=== PATIENT | female | born 1995 | race American Indian/Alaskan Native ===

== ENCOUNTER 2021-04-17 10:20 | Emergency (ER) | payer OTHER ==
--- NOTE | 2021-04-17 10:41 | Event Note ---
ED Screening Note Date of service: 04/17/21 Time: 10:39 ED Screening Note: 25-year-old female (A1; LMP 03/16/21) presents to the emergency department complaints of painful vaginal bleeding starting 2 days ago. Patient states she was experiencing mild spotting last week, which she thought was her menstrual cycle. However, 2 days ago she passed several blood clots, followed by onset of pelvic pain. Today, patient felt lightheaded and dizzy, prompting her to come to the emergency department. She is not anticoagulated. General: Awake, appropriately interactive, no acute distress. Neck: Supple. Full range of motion intact. Cardiovascular: Normal peripheral perfusion. Pulmonary: No respiratory distress. Patient is speaking normally without use of accessory muscles. Skin: No apparent rashes or lesions. Neurological: No facial asymmetry. Speech is clear. Follows commands. Patient is alert and oriented. Musculoskeletal: Moves all four extremities spontaneously with normal range of motion. Psych: Cooperative. Appropriate mood and affect. I have greeted and performed a focused rapid initial assessment of this patient. A comprehensive ED assessment and evaluation of the patient, analysis of all test results, and completion of the medical decision-making process will be con ducted by additional ED providers. This initial assessment/diagnostic orders/clinical plan/treatment(s) is/are subject to change based on patients health status, clinical progression and re-assessment. Further treatment and workup at subsequent clinical provider's discretion. Patient/guardian urged not to elope from the ED as their condition may be serious if not clinically assessed and managed.
--- NOTE | 2021-04-17 10:46 | Emergency Department Report ---
ED Female HPI - General Chief complaint: Vaginal Bleeding Stated complaint: EXCESSIVE VAGINAL BLEEDING, DIZZINESS Time Seen by Provider: 04/17/21 10:43 Source: patient Mode of arrival: Ambulatory Limitations: No Limitations - History of Present Illness Initial comments: Patient is a pleasant 25-year-old -[place] female that comes to the emergency room with vaginal bleeding. She states that her periods have been extremely heavy and prolonged. Patient is not concerned about . She denies being concerned about STDs. Patient just has mild abdominal cramping. She has no abdominal pain. No CVA tenderness. No dysuria. No vaginal discharge. No back pain patient denies fever or chills. Patient denies a history of uterine fibroids but adds that they do run in her family. Patient has not seen an [employer] in a couple years. MD Complaint: vaginal bleeding -: Gradual, week(s) Severity: mild Quality: cramping Consistency: intermittent Improves with: none Worsens with: none Are you Now?: No Associated Symptoms: vaginal bleeding - Related Data Sexually active: Yes Allergies Allergy/AdvReac Type Severity Reaction Status Date / Time codeine Allergy Rash Verified 04/17/21 10:23 ED Review of Systems ROS: Stated complaint: EXCESSIVE VAGINAL BLEEDING, DIZZINESS Other details as noted in HPI Comment: All other systems reviewed and negative ED Past Medical Hx - Past Medical History Previous Medical History?: No - Surgical History Past Surgical History?: No - Family History Family history: no significant - Social History Smoking Status: Never Smoker Substance Use Type: None ED Physical Exam - General Limitations: No Limitations General appearance: alert, in no apparent distress - Head Head exam: Present: atraumatic, normocephalic - Eye Eye exam: Present: normal appearance - ENT ENT exam: Present: mucous membranes moist - Neck Neck exam: Present: normal inspection - Respiratory Respiratory exam: Present: normal lung sounds bilaterally. Absent: respiratory distress - Cardiovascular Cardiovascular Exam: Present: regular rate, normal rhythm. Absent: systolic murmur, diastolic murmur, rubs, gallop - GI/Abdominal GI/Abdominal exam: Present: soft, normal bowel sounds - Extremities Exam Extremities exam: Present: normal inspection - Back Exam Back exam: Present: normal inspection - Neurological Exam Neurological exam: Present: alert, oriented X3 - Psychiatric Psychiatric exam: Present: normal affect, normal mood - Skin Skin exam: Present: warm, dry, intact, normal color. Absent: rash ED Course Vital Signs 04/17/21 04/17/21 10:27 12:46 Temperature 98.9 F Pulse Rate 80 67 Respiratory 16 12 Rate Blood Pressure 132/92 Blood Pressure 114/67 [Left] O2 Sat by Pulse 100 98 Oximetry ED Medical Decision Making - Lab Data Result diagrams: 04/17/21 11:02 04/17/21 11:02 - Medical Decision Making Vital Signs 04/17/21 04/17/21 10:27 12:46 Temperature 98.9 F Pulse Rate 80 67 Respiratory 16 12 Rate Blood Pressure 132/92 Blood Pressure 114/67 [Left] O2 Sat by Pulse 100 98 Oximetry Labs 04/17/21 04/17/21 04/17/21 11:02 11:02 11:02 WBC 4.1 L RBC 4.09 Hgb 12.8 Hct 37.1 MCV 91 MCH 31 MCHC 35 H RDW 12.6 L Plt Count 161 Lymph % (Auto) 38.2 H [place] % (Auto) 6.4 Eos % (Auto) 0.5 Baso % (Auto) 0.6 Lymph # (Auto) 1.5 [place] # (Auto) 0.3 Eos # (Auto) 0.0 Baso # (Auto) 0.0 Seg Neutrophils % 54.3 Seg Neutrophils # 2.2 Sodium 137 Potassium 4.1 Chloride 103.6 Carbon Dioxide 26 Anion Gap 12 BUN 12 Creatinine 0.7 Estimated GFR > 60 BUN/Creatinine Ratio 17 Glucose 89 Calcium 8.7 Total Bilirubin 0.30 AST 18 ALT 16 Alkaline Phosphatase 80 Total Protein 6.9 Albumin 4.2 Albumin/Globulin Ratio 1.6 HCG, Quant < 2 Urine Color Urine Turbidity Urine pH Ur Specific [place] Urine Protein Urine Glucose (UA) Urine Ketones Urine Blood Urine Nitrite Urine Bilirubin Urine Urobilinogen Ur Leukocyte Esterase Urine WBC (Auto) Urine RBC (Auto) U Epithel Cells (Auto) Urine Mucus Blood Type Ord Rhogam Gestat Weeks 04/17/21 04/17/21 11:02 Unknown WBC RBC Hgb Hct MCV MCH MCHC RDW Plt Count Lymph % (Auto) [place] % (Auto) Eos % (Auto) Baso % (Auto) Lymph # (Auto) [place] # (Auto) Eos # (Auto) Baso # (Auto) Seg Neutrophils % Seg Neutrophils # Sodium Potassium Chloride Carbon Dioxide Anion Gap BUN Creatinine Estimated GFR BUN/Creatinine Ratio Glucose Calcium Total Bilirubin AST ALT Alkaline Phosphatase Total Protein Albumin Albumin/Globulin Ratio HCG, Quant Urine Color Straw Urine Turbidity Clear Urine pH 8.0 H Ur Specific [place] 1.006 Urine Protein <15 mg/dl Urine Glucose (UA) Neg Urine Ketones Neg Urine Blood Mod Urine Nitrite Neg Urine Bilirubin Neg Urine Urobilinogen < 2.0 Ur Leukocyte Esterase Neg Urine WBC (Auto) < 1.0 Urine RBC (Auto) 1.0 U Epithel Cells (Auto) 2.0 Urine Mucus Few Blood Type A POSITIVE Ord Rhogam Gestat Weeks Rh pos - Differential Diagnosis ro preg/ab/dub Critical care attestation.: If time is entered above; I have spent that time in minutes in the direct care of this critically ill patient, excluding procedure time. ED Disposition Clinical Impression: DUB (dysfunctional uterine bleeding) Disposition: DC-01 TO HOME OR SELFCARE Is pt being admited?: No Does the pt Need Aspirin: No Condition: Stable Instructions: Abnormal Uterine Bleeding Additional Instructions: follow up with obgyn stay well hydrated Referrals: MELANI VILLARREAL [Other] - 3-5 Days SUKI FIORE MD [Staff Physician] - 3-5 Days Forms: Work/School Release Form(ED) Time of Disposition: 12:23
[2021-04-17 11:06] LABS: Bilirubin,Urine NEG (Negative); Blood,Urine MOD (Negative); Color,Urine Straw (Yellow); Mucus,Urine FEW /HPF; Protein,Urine <15 mg/dL mg/dL (Negative); Urobilinogen,Urine < 2.0 mg/dL (<2.0); WBC,Urine < 1.0 /HPF (0.0-6.0)
[2021-04-17 11:18] LABS: Basophils % (Auto) 0.6 % (0.0-1.8); Eosinophils % (Auto) 0.5 % (0.0-4.3); Hematocrit 37.1 % (30.3-42.9); Hemoglobin 12.8 gm/dl (10.1-14.3); Lymphocytes # (Auto) 1.5 K/mm3 (1.2-5.4); Lymphocytes % (Auto) 38.2 % (13.4-35.0); Mean Corpuscular HGB Conc 35 % (30-34); Mean Corpuscular Volume 91 fl (79-97); Monocytes # (Auto) 0.3 K/mm3 (0.0-0.8); Monocytes % (Auto) 6.4 % (0.0-7.3); Platelet Count 161 K/mm3 (140-440); Red Blood Count 4.09 M/mm3 (3.65-5.03); Red Cell Distribution Width 12.6 % (13.2-15.2)
[2021-04-17 12:01] LABS: Alanine Aminotransferase 16 units/L (7-56); Albumin 4.2 g/dL (3.9-5); Blood Urea Nitrogen 12 mg/dL (7-17); Calcium 8.7 mg/dL (8.4-10.2); Hemolysis Index 10
[2021-04-17 12:06] LABS: BUN/Creatinine Ratio 17
[2021-04-17 12:46] VITALS: BP 114/67
== END 2021-04-17 12:46 | disposition home or self-care (01) ==
LOC: ED 10:20
DX: N93.8 Other specified abnormal uterine and vaginal bleeding (principal); Z88.8 Allergy status to other drugs, medicaments and biological substances
CPT/HCPCS: 36415; 80053; 81001; 84702; 85025; 86900; 86901